=== PATIENT | female | born 1950 | race Caucasian/White ===

== ENCOUNTER 2017-04-29 14:39 | Emergency (ER) | payer OTHER, MEDICARE ==
[2017-04-29] MEDS ORDERED: Naproxen 550 mg Tab PO STA (14:43)
[2017-04-29] MEDS ORDERED: Naproxen 550 mg Tab PO ONE (14:46)
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
[2017-04-29 15:25] VITALS: BP 125/80; PULSE 66; RESP 14; TEMP 99
[2017-04-29 16:02] VITALS: O2SAT 100
== END 2017-04-29 15:25 | disposition home or self-care (01) ==
LOC: C.ER 14:39
DX: S16.1XXA Strain of muscle, fascia and tendon at neck level, initial encounter (principal); V89.2XXA Person injured in unspecified motor-vehicle accident, traffic, initial encounter